=== PATIENT | female | born 1990 | race Caucasian/White ===

== ENCOUNTER 2018-11-30 06:01 | Inpatient (IN) | payer BC ==
[2018-11-30] VITALS (24 sets, daily range): BP systolic 104–136; BP diastolic 57–87; PULSE 69–103; TEMP 97.8–98.3
[~2018-11-30] VITALS: Ht 175.3 cm; Wt 91.8 kg
[~2018-11-30 06:01] MED LIST: BCP TD; MOTRIN 600600 MG/TAB PO; PERCOCET 325 MG1 TA2 PO; PRENATAL VITAMI1 TA2 PO; SINGULAIR 110 MG/TAB PO; TRAZADONE HYDR100 MG PO; ZYRTEC 10MG10 MG PO
[2018-11-30] MEDS ORDERED: COLACE 100100 MG/CAP PO (06:41)
[2018-11-30] MEDS ORDERED: ZANTAC 150MG T150 MG PO (06:41)
[2018-11-30] MEDS ORDERED: TUMS500 MG (06:41)
--- NOTE | 2018-11-30 07:45 | NUR ---
0720 G2L1 at 39 weeks gestation to LDR6 with for induction of labor. Plan of care reviewed. Patient changed into gown and wedged to left side in bed. EFMs explained and applied. FHR 130 bpm and reactive. No CTX per toco or patient reports. VSS. Assessment and consents completed. 0740 IV started in left wrist with labs drawn from site. LR infusing per protocol. SVE /-2, patient denies leaking of fluid or vaginal bleeding and reports good movement. 0745 Pitocin started at 2mu per orders and protocol.
[2018-11-30 08:10] LABS: BASO % 0.1 % (0.0-2.0); EOS % 0.6 % (0-4.0); GRAN % 73.1 % (42.2-75.2); LYMPH # 1.2 (1.2-3.4); LYMPH % 16.9 % (20.0-51.0); MEAN CELL VOLUME 90 fl (80.0-100.0); MEAN CORPUSCULAR HGB CONC 35 g/dl (33.0-37.0); MEAN PLATELET VOLUME 11.1 fl (7.4-10.4); MONO # 0.6 (0.1-0.6); MONO % 8.1 % (1.7-9.3); PLATELET COUNT 161 K/mm3 (130-400); RED BLOOD COUNT 3.16 M/mm3 (4.10-5.30); REDCELL DISTRIBUTION WIDTH-CV 12.6 % (11.5-14.5)
[2018-11-30 08:15] LABS: HEMATOCRIT 28.4 % (37.0-47.0); HEMOGLOBIN 9.9 g/dl (12.5-16.0); MEAN CORPUSCULAR HEMOGLOBIN 31 pg (27.0-31.0)
--- NOTE | 2018-11-30 08:20 | NUR ---
Dr. Jacinto to room, reviews FHR tracing, SVE with AROM. 3/80/-2 with small amount of clear fluid noted.
--- NOTE | 2018-11-30 09:05 | NUR ---
Patient more uncomfortable with contractions, requesting epidural. IVF bolus started and NEPHROLOGY NURSE notified.
--- NOTE | 2018-11-30 09:31 | NUR ---
09 MERRITT Hobbs to room to place epidural. Patient sits upright on the edge of the bed. FHR difficult to monitor in this position, EFM tracing maternal HR as it coorelates with spO2 tracing. 930 Test dose administered by MERRITT Hobbs - see anesthesia record for details of procedure. 36 - Patient wedged to right side.
--- NOTE | 2018-11-30 10:37 | NUR ---
1025 SVE - complete/+2. Dr. Jacinto called for delivery. 1035 Dr. Jacinto at bedside, patient prepped for delivery. 1036 Patient pushes with one contractions and spontaneous vaginal delivery of viable female infant by Dr. Jacinto at 1037. Cord clamped and cut and to the care of the nursery RN. 1043 Spontaneous delivery of placenta by Dr. Jacinto. Pitocin infusing at 333ml/hr per orders and protocol. 1045 Methergiven 0.2mg given IM per orders. Fundus firms, lázaro WNL.
[2018-12-01 07:00] VITALS: BP 110/73; PULSE 77; TEMP 97.8
[2018-12-01 16:03] VITALS: BP 117/63; PULSE 72; TEMP 98.4
--- NOTE | 2018-12-01 18:38 | NUR ---
BEDSIDE REPORT DECLINED. REPORT RECEIVED FROM OFF GOING RN, SERGIO Maya. CARE TAKEN OVER BY THIS RN.
[2018-12-01 21:04] VITALS: BP 106/58; PULSE 75; TEMP 98.3
[2018-12-02] MEDS ORDERED: IBU600 MG PO (08:43)
[2018-12-02 09:10] VITALS: BP 130/82; PULSE 96; TEMP 98.3
== END 2018-12-02 11:00 | disposition home or self-care (01) | DRG 807 ==
LOC: LDR 06:01 → OB 15:28
PROVIDERS: ADMIT Obstetrics & Gynecology
PROC: 10E0XZZ Delivery of Products of Conception, External Approach (ICD-10-PCS; principal; 2018-11-30)
PROC: 0KQM0ZZ Repair Perineum Muscle, Open Approach (ICD-10-PCS; 2018-11-30)
PROC: 3E033VJ Introduction of Other Hormone into Peripheral Vein, Percutaneous Approach (ICD-10-PCS; 2018-11-30)
DX: O75.89 Other specified complications of labor and delivery (principal); Z37.0 Single live birth; O70.1 Second degree perineal laceration during delivery; Z3A.39 39 weeks gestation of pregnancy
CPT/HCPCS: J2210; J2590; J7120